=== PATIENT | female | born 1975 | race Caucasian/White ===

== ENCOUNTER → 2016-06-13 | Outpatient (CLI) | payer MEDICARE, OTHER ==
[~2016-06-13] MED LIST: ACETAMINOPHEN GT; ACETAMINOPHEN650 M4 PEG; ADULT MUCU100 MG/5 M GT; ADULT MUCU100 MG/5 M NG; ALBUTEROL 0.083% NEB; ALBUTEROL 0.5ML INH; ALBUTEROL0.83 MG/ML IH; ALBUTEROL0.83 MG/ML NEB; APTIOM200 MG PO; APTIOM400 MG GT; APTIOM400 MG PO; APTIOM800 MG FT; APTIOM800 MG GT; APTIOM800 MG PO; ARTIFICIAL TEAR15 M3 OU; ARTIFICIAL TEAR15 ML OU; ARTIFICIAL15 ML OPTH; ATARAX GT; AUGMENTIN GT; AYR SALINE50 M1 NS; AYR50 ML NS; BABY SHAMPOO TOP; BACID GT; BACID PO; BACTRIM DS TABL1 TA2 GT; BACTROBAN22 GM TP; BETAMETHASONE D50 GM TOP; BUDESONIDE0.5 MG/2 M INH; CALCIMAR200 IU/ML; CALCIUM 500 + D1 TAB GT; CARMEX TOP; CEFTIN500 MG GT; CENTRUM GT; CENTRUM MU9 MG/15 ML PO; CENTRUM PEG; CENTRUM SILVER GT; CENTRUM240 ML NG; CETIRIZINE5 MG/5 ML FT; CETIRIZINE5 MG/5 ML GT; CETIRIZINE5 MG/5 ML NG; COLACE GT; COLACE50 MG/5 M1 JT; COLACE50 MG/5 ML GT; COLACE50 MG/5 ML PEG; DEBROX AU; DEBROX15 M1 OT; DEBROX15 ML AU; DESENEX45 GM EXT; DIAPER RASH TOP; DIASTAT RC; DIASTAT10 MG; DIASTAT10 MG PR; DIAZEPAM 10 MG RC; DIFLUCAN IV; DIMETAPP GT; FAMOTIDINE GT; FAST RELIEF LAX10 MG RC; FEOSOL300 MG/5 M DOB; FEROSUL220 MG/5 M GT; FEROSUL220 MG/51 JT; FERROUS SU220 MG/52 GT; FIBER; FIBERSTAT GT; FLAGYL PO; FLONASE 0.05% N16 G1; FLOXIN OTIC OT; FLUNISOLIDE; FLUNISOLIDE25 ML NS; FOSAMAX PO; FOSAMAX70 MG GT; GENAHIST GT; HEPARIN IV; HYDROCORT-PRAM120 GM TOP; HYDROCORTISONE28 GM TOP; HYDROXYZINE HCL25 M1 GT; IBUPROFEN GT; IBUPROFEN PO; INVANZ 1 GM IV; INVANZ IV; IPRATR-ALBUTEROL3 ML INH; JEVITY1000 M1; KAY CIEL20 MEQ/15 GT; KCL GT; KEPPRA 1000 MG GT; KEPPRA 500 MG GT; KEPPRA GT; KEPPRA100 MG/ML FT; KEPPRA100 MG/ML GT; KEPPRA1000 MG GT; KEPPRA1000 MG PEG; KEPPRA1000 MG PO; KEPPRA500 MG DOB; KEPPRA500 MG/51 NG; KEPPRA750 MG GT; KEPPRA750 MG PO; KERI TOP; LACTULOSE10 G/15 ML GT; LACTULOSE10 G/15 ML PO; LAMICTAL GT; LAMICTAL NG; LAMICTAL ODT200 MG PEG; LAMICTAL PO; LAMICTAL100 MG GT; LAMICTAL100 MG JT; LAMICTAL25 MG DOB; LAMICTAL25 MG PO; LAMOTRIGINE200 MG GT; LAMOTRIGINE200 MG NG; LEVAQUIN GT; LEVAQUIN PO; LIQUITEARS; LIQUITEARS OP; LISINOPRIL 2.5 MG GT; LOPRESSOR GT; LOTRIMIN 1% CR30 GM EXT; MAG-OX 400400 M1 NG; MAG-OX 400400 M1 PO; MAGIC BUTT; MAGIC BUTT CR TOP; MAGNESIUM OXIDE GT; MAGNESIUM200 MG PEG; MAGNESIUM400 MG GT; MEDIFIN EX100 MG/5 M PEG; METOPROLOL; MY FAVORITE MU237 ML GT; NASALIDE INHALE25 ML; NASALIDE NS; NASALIDE25 ML; NEXIUM40 MG/PACK NG; NILSTAT PO; NITROFURANTOIN100 M3 GT; NON-ASPIRIN PA325 M1 GT; NORMAL SALINE; NORMAL SALINE GT; NS GT; NYSTATIN5 ML PO; OMNICEF NG; OXCARBAZEP300 MG/5 M GT; OXCARBAZEPINE 450 MG GT; OXYGEN; OYSTER CALCIUM500 MG GT; OYSTER SHELL C1 EAC1 GT; OYSTER SHELL C1 EAC3 GT; PAIN RELIEF325 M1 GT; PAMPRIN MULTI-S1 TAB GT; PATANOL 0.1%; PATANOL5 ML OP; PATANOL5 ML OU; PATIENT'S PHARMACY; PERFOROMIS20 MCG/2 M INH; PERFOROMIS20 MCG/2 M NEB; PERIDEX; PERIDEX480 ML PO; PHENERGAN SUPP25 M1 PR; PHENERGAN12.5 M1 PR; POTASSIUM CHLORIDE GT; POTASSIUM40 MEQ/15 GT; POTASSIUM40 MEQ/15 NG; POTASSIUM40 MEQ/15 PO; PRINIVIL5 MG PEG; PROVENTIL0.83 MG/ML IH; PROVENTIL0.83 MG/ML INH; PULMICORT NEB; PULMICORT0.5 MG/2 M IH; PULMICORT0.5 MG/2 M INH; PULMICORT0.5 MG/2 M NEB; Q-PAP325 MG PO; RISAMINE OINTM113 GM; RISAMINE OINTM113 GM TOP; ROBITUSSIN-DM120 ML GT; ROBITUSSIN100 MG/51 PO; SALINE NASAL14.1 GM; SENNA; SENNA GT; SENNA LAXATIVE1 TAB PEG; SENNA8.8 MG/5 M GT; SENNA8.8 MG/5 M NG; SENOKOT60 ML GT; SINGULAIR GT; SODIUM CHLORIDE; THERA DERM TOP; THERAGRAN1 TAB PO; THERAVITE GT; TRILEPTAL GT; TRILEPTAL300 MG/5 M NG; TRILEPTAL300 MG/5 M PEG; TRILEPTAL300 MG/5 M PO; TYLENOL 325 MG GT; TYLENOL325 M1 JT; TYLENOL325 MG/10. GT; UTI-STAT L3875 MG/30 GT; UTI-STAT L3875 MG/30 PO; VANCOMYCIN HCL750 MG IV; VIBRAMYCIN100 M1 GT; VIT D DOB; VIT GT; VITAMIN C GT; VITAMIN D GT; VITAMIN D-32000 UNI1 PEG; VITAMIN D-32000 UNI1 PO; VITAMIN D1000 UNI1 GT; VITAMIN D3 1,01 EACH NG; VITAMIN D31000 UNIT GT; XOPENEX NEB; ZOSYN 3.375 GM IV; ZYRTEC 10 MG GT; ZYRTEC10 M1 PEG; ZYRTEC10 M1 PO; ZYRTEC5 MG GT; ZZ IMMUNOTHERAPY; ZZ-IMMUNOTHERAPY SQ; [UNRECOGNIZED DRUG - OTHER]; [UNRECOGNIZED DRUG - OTHER]; [UNRECOGNIZED DRUG - OTHER] GT; [UNRECOGNIZED DRUG - OTHER] GT; [UNRECOGNIZED DRUG - OTHER] GT; [UNRECOGNIZED DRUG - OTHER] GT; [UNRECOGNIZED DRUG - OTHER] GT; [UNRECOGNIZED DRUG - OTHER] GT; [UNRECOGNIZED DRUG - OTHER] IV; [UNRECOGNIZED DRUG - OTHER] PEG; [UNRECOGNIZED DRUG - OTHER] TOP; [UNRECOGNIZED DRUG - OTHER] TOP; [UNRECOGNIZED DRUG - REMARK] GT; [UNRECOGNIZED DRUG - REMARK] SUBQ; immunotherapy
[2016-06-13 18:59] LABS: URINE APPEARANCE TURBID; URINE BILIRUBIN NEG (NEG); URINE BLOOD 4+ (NEG); URINE COLOR RED; URINE GLUCOSE NORM (NORM); URINE KETONE NEG (NEG); URINE LEUKOCYTE ESTERASE 1+ (NEG); URINE NITRATE NEG (NEG); URINE PROTEIN 3+ (NEG); URINE SOURCE CLEAN CATCH; URINE UROBILINOGEN NORM (NORM)
[2016-06-13 19:01] LABS: URBCS1 AUWI 50-100 /[HPF] (0-2)
[2016-06-13 19:02] LABS: URINE BACTERIA AUWI 3+ (NEGATIVE); URINE MUCUS PRESENT; URINE SQUAMOUS EPITHELIAL CELL MODERATE /[HPF]
== END | disposition home or self-care (01) ==
LOC: CHAZ 18:30
PROVIDERS: Nurse Practitioner
DX: N39.0 Urinary tract infection, site not specified (principal)
CPT/HCPCS: 81003; 87086; 87088; 87186